=== PATIENT | male | born 1930 | race Caucasian/White ===

== ENCOUNTER 2019-03-18 09:49 | Inpatient (IN) ==
[2019-03-18] MEDS ORDERED: ASPIRIN 325 MG TABLET PO STA (10:38)
[2019-03-18 10:41] LABS: Basophils # 0.1 10*3/uL (0.0-0.2); Basophils % 0.1 % (0.0-0.8); Eosinophils # 0.1 10*3/uL (0.0-0.87); Eosinophils % 0.1 % (0.00-10.9); Immature Granulocytes Absolute 5.16 #; Lymphocytes # 12.9 10*3/uL (1.4-4.0); Lymphocytes % 15.2 % (21.2-54.2); Mean Corpuscular Volume 149.3 FL (87-102); Mean Platelet Volume 10.8 FL (9.6-12.0); Monocytes % 56.1 % (1.7-12.7); NRBC # 0.04 10*3/uL; Neutrophils % 22.5 % (38.7-73.9); Platelet Count 52 T/CUMM (130-400); Red Blood Count 1.34 MC/CUMM (3.8-5.5); Red Cell Distribution Width 19.1 % (9.3-17.3)
[2019-03-18 10:54] LABS: White Blood Count 85.4 T/CUMM (4-12)
[2019-03-18 10:55] LABS: Hemoglobin 6.2 GM/DL (14.0-18.0)
[2019-03-18 10:58] LABS: Albumin 4.1 G/DL (3.4-5.0); Bilirubin,Total 0.9 MG/DL (0.2-1.0); Calcium 8.4 MG/DL (8.5-10.1); Osmolality,Calculated 278.1 MOS/KG (273-304); Total Protein 7.2 G/DL (6.4-8.3)
[2019-03-18 11:02] LABS: Band Neutrophils 2 % (0-10); Hypochromasia 1+; Lymphocytes 3 % (20-55); Platelet Estimate Decreased; Segmented Neutrophils 29 % (50-85); Total Cells Counted 100
[2019-03-18] MEDS ORDERED: SODIUM CHLORIDE 0.9% 1,000 ML IV PRN ×2 (11:28→16:48)
[2019-03-18] MEDS ORDERED: ONDANSETRON 4 MG/2 ML VIAL IV PRN (11:51)
[2019-03-18] MEDS ORDERED: PROMETHAZINE 25 MG TABLET PO PRN (11:51)
[2019-03-18] MEDS ORDERED: LACTULOSE 20 GM/30 ML UDCUP PO PRN (11:51)
[2019-03-18] MEDS ORDERED: ALBUTEROL 2.5 MG/3 ML NEB RESP TX PRN (11:51)
[2019-03-18] MEDS ORDERED: ACETAMINOPHEN 325 MG TABLET PO PRN (11:51)
[2019-03-18] MEDS ORDERED: PIPERACILLIN/TAZOBACTAM 3,375 MG in SODIUM CHLORIDE 0.9% 100 ML IV STA (11:53)
[2019-03-18 12:02] LABS: INR 1.1; PT Patient Result 11.6 SECS
[2019-03-18] MEDS ORDERED: PIPERACILLIN/TAZOBACTAM 3,375 MG VIAL IV ONE (12:15)
[2019-03-18 14:36] LABS: Risk Ratio 2.21; VLDL CHOLESTEROL 29.4 MG/DL
[2019-03-18] MEDS: METOPROLOL TARTRATE 25 MG TABLET PO SCH ×2 (15:11→21:19)
[2019-03-18] MEDS: FAMOTIDINE 20 MG/2 ML VIAL IV SCH (15:12)
[2019-03-18] MEDS: SODIUM CHLORIDE 0.45% 1,000 ML IV SCH (15:13)
[2019-03-18] MEDS: ALUMINUM/MAGNES/SIMETH MAX STR 30 ML UDCUP PO SCH ×2 (18:04→21:19)
[2019-03-18] MEDS: ASPIRIN EC 81 MG TABLET PO SCH (21:18)
[2019-03-18] MEDS: ALLOPURINOL 100 MG TABLET PO SCH (21:18)
[2019-03-18] MEDS: ROSUVASTATIN 20 MG TABLET PO SCH (21:18)
[2019-03-18] MEDS: CHOLECALCIFEROL 1,000 UNIT TABLET PO SCH (21:18)
[2019-03-18 22:08] LABS: ABG Base Excess -5.7 MMOL/L (-2.5-2.5); ABG HCO3 18.8 MMOL/L (20-26); ABG Oxygen Saturation 93.5 % (95-100); ABG PCO2 32.7 MM HG (35-48); ABG PH 7.378 (7.35-7.45); ABG PO2 83.8 MM HG (80-95); ABG TCO2 19.8 MMOL/L (23-27); Allen Test Positive
[2019-03-18] MEDS ORDERED: LORazepam 2 MG/1 ML VIAL IM ONE (22:32)
[2019-03-18] MEDS: THYROID 60 MG TABLET PO SCH (22:41)
[2019-03-19] MEDS ORDERED: ZIPRASIDONE 20 MG/1 ML VIAL IM PRN (02:25)
[2019-03-19 03:29] LABS: ABG Base Excess -5.1 MMOL/L (-2.5-2.5); ABG HCO3 20.1 MMOL/L (20-26); ABG PCO2 39.8 MM HG (35-48); ABG PH 7.322 (7.35-7.45); ABG PO2 58.4 MM HG (80-95); ABG TCO2 19.5 MMOL/L (23-27); Allen Test Positive
[2019-03-19 04:01] LABS: Calcium 7.7 MG/DL (8.5-10.1); Osmolality,Calculated 274.7 MOS/KG (273-304)
[2019-03-19 04:02] LABS: Basophils # 0.1 10*3/uL (0.0-0.2); Basophils % 0.1 % (0.0-0.8); Eosinophils # 0.1 10*3/uL (0.0-0.87); Eosinophils % 0.1 % (0.00-10.9); Hematocrit 23.1 VOL% (42.0-52.0); Hemoglobin 7.2 GM/DL (14.0-18.0); Immature Granulocytes % 6.8 %; Immature Granulocytes Absolute 8.74 #; Lymphocytes # 6.5 10*3/uL (1.4-4.0); Lymphocytes % 5.1 % (21.2-54.2); Mean Corpuscular HGB Conc 31.2 GM/DL (32-36); Mean Corpuscular Volume 131.3 FL (87-102); Monocytes % 66.1 % (1.7-12.7); NRBC # 0.04 10*3/uL; Neutrophils % 21.8 % (38.7-73.9); Red Blood Count 1.76 MC/CUMM (3.8-5.5)
[2019-03-19 04:05] LABS: Platelet Count 64 T/CUMM (130-400)
[2019-03-19 04:07] LABS: White Blood Count 127.9 T/CUMM (4-12)
[2019-03-19] MEDS ORDERED: ALBUTEROL/IPRATROPIUM 3 ML NEB RESP TX ONE (04:18)
[2019-03-19] MEDS ORDERED: SODIUM BICARBONATE 50 MEQ/50 ML VIAL IV ONE (04:19)
[2019-03-19 04:51] LABS: Band Neutrophils 3 % (0-10); Eosinophils 1 % (0-10); Lymphocytes 4 % (20-55); Platelet Estimate Decreased; Segmented Neutrophils 26 % (50-85); Total Cells Counted 100
[2019-03-19 04:52] LABS: Hypochromasia 1+
[2019-03-19] MEDS: PIPERACILLIN/TAZOBACTAM 3,375 MG in SODIUM CHLORIDE 0.9% 100 ML IV SCH ×4 (04:54→23:21)
[2019-03-19] MEDS: ALUMINUM/MAGNES/SIMETH MAX STR 30 ML UDCUP PO SCH ×4 (04:55→21:00)
[2019-03-19] MEDS: METOPROLOL TARTRATE 25 MG TABLET PO SCH ×2 (08:03→21:00)
[2019-03-19] MEDS: FAMOTIDINE 20 MG/2 ML VIAL IV SCH (08:04)
[2019-03-19] MEDS: SODIUM POLYSTYRENE SULFATE 15 GM/60 ML BOTTLE PO ONE ×2 (10:30→15:40)
[2019-03-19] MEDS: ALPRAZolam 0.25 MG TABLET PO PRN ×2 (11:01→20:01)
[2019-03-19] MEDS: SODIUM CHLORIDE 0.45% 1,000 ML IV SCH (13:51)
[2019-03-19 16:38] LABS: Calcium 8.1 MG/DL (8.5-10.1); Osmolality,Calculated 276.4 MOS/KG (273-304)
[2019-03-19] MEDS: CHOLECALCIFEROL 1,000 UNIT TABLET PO SCH (21:00)
[2019-03-19] MEDS: ROSUVASTATIN 20 MG TABLET PO SCH (21:00)
[2019-03-19] MEDS: THYROID 60 MG TABLET PO SCH (21:00)
[2019-03-19] MEDS: ASPIRIN EC 81 MG TABLET PO SCH (21:00)
[2019-03-19] MEDS: ALLOPURINOL 100 MG TABLET PO SCH (21:00)
[2019-03-20] MEDS: SODIUM CHLORIDE 0.45% 1,000 ML IV SCH ×3 (02:50→17:56)
[2019-03-20] MEDS: ALPRAZolam 0.25 MG TABLET PO PRN (02:51)
[2019-03-20] MEDS: ALUMINUM/MAGNES/SIMETH MAX STR 30 ML UDCUP PO SCH ×4 (03:14→21:05)
[2019-03-20 06:44] LABS: Basophils # 0.1 10*3/uL (0.0-0.2); Basophils % 0.1 % (0.0-0.8); Eosinophils # 0.1 10*3/uL (0.0-0.87); Eosinophils % 0.1 % (0.00-10.9); Hematocrit 18.5 VOL% (42.0-52.0); Immature Granulocytes % 5.5 %; Immature Granulocytes Absolute 4.37 #; Lymphocytes # 10.7 10*3/uL (1.4-4.0); Lymphocytes % 13.4 % (21.2-54.2); Mean Corpuscular HGB Conc 32.4 GM/DL (32-36); Mean Corpuscular Volume 127.6 FL (87-102); Mean Platelet Volume 10.4 FL (9.6-12.0); Monocytes % 55.6 % (1.7-12.7); NRBC # 0.04 10*3/uL; Neutrophils % 25.3 % (38.7-73.9); Platelet Count 44 T/CUMM (130-400); Red Blood Count 1.45 MC/CUMM (3.8-5.5)
[2019-03-20 06:53] LABS: White Blood Count 80.1 T/CUMM (4-12)
[2019-03-20 07:00] LABS: Calcium 7.2 MG/DL (8.5-10.1); Osmolality,Calculated 279.1 MOS/KG (273-304); Uric Acid 9.7 MG/DL (3.5-7.2)
[2019-03-20 07:01] LABS: Band Neutrophils 2 % (0-10); Hypochromasia 1+; Lymphocytes 5 % (20-55); Platelet Estimate Decreased; Segmented Neutrophils 33 % (50-85); Total Cells Counted 100
[2019-03-20] MEDS ORDERED: SODIUM CHLORIDE 0.9% 1,000 ML IV PRN (08:09)
[2019-03-20] MEDS: FAMOTIDINE 20 MG/2 ML VIAL IV SCH (09:26)
[2019-03-20] MEDS: HYDROXYUREA 500 MG CAPSULE PO SCH (09:28)
[2019-03-20] MEDS: METOPROLOL TARTRATE 25 MG TABLET PO SCH ×2 (09:28→20:58)
[2019-03-20] MEDS: DUTASTERIDE 0.5 MG CAPSULE PO SCH (09:28)
[2019-03-20] MEDS: HALOPERIDOL 5 MG/ML AMP IM PRN (10:36)
[2019-03-20] MEDS: PIPERACILLIN/TAZOBACTAM 3,375 MG in SODIUM CHLORIDE 0.9% 100 ML IV SCH (17:57)
[2019-03-20] MEDS: THYROID 60 MG TABLET PO SCH (20:55)
[2019-03-20] MEDS: CHOLECALCIFEROL 1,000 UNIT TABLET PO SCH (20:55)
[2019-03-20] MEDS: ASPIRIN EC 81 MG TABLET PO SCH (20:55)
[2019-03-20] MEDS: ALLOPURINOL 100 MG TABLET PO SCH (20:55)
[2019-03-21] MEDS: HALOPERIDOL 5 MG/ML AMP IM PRN (00:45)
[2019-03-21] MEDS: ALUMINUM/MAGNES/SIMETH MAX STR 30 ML UDCUP PO SCH ×4 (06:22→22:37)
[2019-03-21] MEDS: SODIUM CHLORIDE 0.45% 1,000 ML IV SCH ×2 (06:23→21:12)
[2019-03-21] MEDS: PIPERACILLIN/TAZOBACTAM 3,375 MG in SODIUM CHLORIDE 0.9% 100 ML IV SCH ×2 (06:46→18:20)
[2019-03-21 06:50] LABS: Basophils # 0.1 10*3/uL (0.0-0.2); Basophils % 0.1 % (0.0-0.8); Eosinophils # 0.2 10*3/uL (0.0-0.87); Eosinophils % 0.2 % (0.00-10.9); Hematocrit 27.6 VOL% (42.0-52.0); Lymphocytes # 9.2 10*3/uL (1.4-4.0); Mean Corpuscular HGB Conc 32.6 GM/DL (32-36); Mean Corpuscular Volume 110.8 FL (87-102); Mean Platelet Volume 10.5 FL (9.6-12.0); Monocytes % 53.2 % (1.7-12.7); NRBC # 0.03 10*3/uL; Neutrophils % 28.5 % (38.7-73.9); Platelet Count 41 T/CUMM (130-400); Red Blood Count 2.49 MC/CUMM (3.8-5.5); Red Cell Distribution Width 31.5 % (9.3-17.3)
[2019-03-21 06:53] LABS: White Blood Count 76.8 T/CUMM (4-12)
[2019-03-21 07:15] LABS: Calcium 7.4 MG/DL (8.5-10.1); Uric Acid 10.2 MG/DL (3.5-7.2)
[2019-03-21 07:18] LABS: Albumin 3.3 G/DL (3.4-5.0); Bilirubin,Total 0.9 MG/DL (0.2-1.0); Calcium 7.3 MG/DL (8.5-10.1); Total Protein 6.5 G/DL (6.4-8.3)
[2019-03-21] MEDS: HYDROXYUREA 500 MG CAPSULE PO SCH (09:37)
[2019-03-21] MEDS: METOPROLOL TARTRATE 25 MG TABLET PO SCH ×2 (09:37→21:09)
[2019-03-21] MEDS: FAMOTIDINE 20 MG/2 ML VIAL IV SCH (09:41)
[2019-03-21 10:08] LABS: Anisocytosis 2+; Band Neutrophils 2 % (0-10); Eosinophils 2 % (0-10); Lymphocytes 13 % (20-55); Metamyelocytes 1 %; Reactive Lymphocytes Few; Segmented Neutrophils 22 % (50-85); Total Cells Counted 100
[2019-03-21 10:09] LABS: Macrocytosis 1+; Microcytosis 1+; Ovalocytes Few; Platelet Estimate Decreased; Polychromasia Slight; Spherocytes Few
[2019-03-21] MEDS: ASPIRIN EC 81 MG TABLET PO SCH (21:09)
[2019-03-21] MEDS: THYROID 60 MG TABLET PO SCH (21:09)
[2019-03-21] MEDS: CHOLECALCIFEROL 1,000 UNIT TABLET PO SCH (21:09)
[2019-03-21] MEDS: ALLOPURINOL 100 MG TABLET PO SCH (21:10)
[2019-03-22] MEDS: ALUMINUM/MAGNES/SIMETH MAX STR 30 ML UDCUP PO SCH ×4 (05:14→21:00)
[2019-03-22] MEDS: SODIUM CHLORIDE 0.45% 1,000 ML IV SCH (05:14)
[2019-03-22 06:14] LABS: Basophils # 0.1 10*3/uL (0.0-0.2); Basophils % 0.2 % (0.0-0.8); Eosinophils # 0.2 10*3/uL (0.0-0.87); Eosinophils % 0.3 % (0.00-10.9); Hematocrit 27.6 VOL% (42.0-52.0); Immature Granulocytes % 5.5 %; Lymphocytes # 5.7 10*3/uL (1.4-4.0); Lymphocytes % 6.9 % (21.2-54.2); Mean Corpuscular HGB Conc 32.6 GM/DL (32-36); Mean Corpuscular Volume 112.2 FL (87-102); Mean Platelet Volume 10.2 FL (9.6-12.0); Monocytes % 61.7 % (1.7-12.7); NRBC # 0.03 10*3/uL; Neutrophils % 25.4 % (38.7-73.9); Red Blood Count 2.46 MC/CUMM (3.8-5.5); Red Cell Distribution Width 31.7 % (9.3-17.3)
[2019-03-22 06:24] LABS: Platelet Count 39 T/CUMM (130-400)
[2019-03-22 06:43] LABS: Albumin 3.3 G/DL (3.4-5.0); Calcium 7.8 MG/DL (8.5-10.1); Osmolality,Calculated 284.7 MOS/KG (273-304); Total Protein 6.6 G/DL (6.4-8.3)
[2019-03-22] MEDS: PIPERACILLIN/TAZOBACTAM 3,375 MG in SODIUM CHLORIDE 0.9% 100 ML IV SCH ×2 (07:20→17:53)
[2019-03-22 08:16] LABS: Band Neutrophils 2 % (0-10); Lymphocytes 23 % (20-55); Metamyelocytes 1 %; Segmented Neutrophils 29 % (50-85); Total Cells Counted 100
[2019-03-22 08:17] LABS: Anisocytosis 2+; Macrocytosis Slight; Microcytosis Slight; Platelet Estimate Decreased; Polychromasia Slight
[2019-03-22 08:18] LABS: Stomatocytes Slight
[2019-03-22] MEDS: METOPROLOL TARTRATE 25 MG TABLET PO SCH ×2 (10:04→21:00)
[2019-03-22] MEDS: DUTASTERIDE 0.5 MG CAPSULE PO SCH (10:04)
[2019-03-22] MEDS: HYDROXYUREA 500 MG CAPSULE PO SCH (10:04)
[2019-03-22] MEDS: FAMOTIDINE 20 MG/2 ML VIAL IV SCH (10:05)
[2019-03-22] MEDS: ALLOPURINOL 100 MG TABLET PO SCH (21:47)
[2019-03-22] MEDS: CHOLECALCIFEROL 1,000 UNIT TABLET PO SCH (21:48)
[2019-03-22] MEDS: THYROID 60 MG TABLET PO SCH (21:48)
[2019-03-22] MEDS: ASPIRIN EC 81 MG TABLET PO SCH (21:49)
[2019-03-23] MEDS: PIPERACILLIN/TAZOBACTAM 3,375 MG in SODIUM CHLORIDE 0.9% 100 ML IV SCH ×2 (05:49→19:12)
[2019-03-23] MEDS: ALUMINUM/MAGNES/SIMETH MAX STR 30 ML UDCUP PO SCH ×4 (05:50→20:21)
[2019-03-23 06:22] LABS: Basophils # 0.2 10*3/uL (0.0-0.2); Basophils % 0.3 % (0.0-0.8); Eosinophils # 0.3 10*3/uL (0.0-0.87); Eosinophils % 0.4 % (0.00-10.9); Hematocrit 28.9 VOL% (42.0-52.0); Hemoglobin 9.3 GM/DL (14.0-18.0); Immature Granulocytes Absolute 3.93 #; Lymphocytes # 16.3 10*3/uL (1.4-4.0); Lymphocytes % 24.7 % (21.2-54.2); Mean Corpuscular HGB Conc 32.2 GM/DL (32-36); Mean Corpuscular Volume 114.2 FL (87-102); Mean Platelet Volume 10.8 FL (9.6-12.0); Monocytes % 43.5 % (1.7-12.7); NRBC # 0.03 10*3/uL; Neutrophils % 25.1 % (38.7-73.9); Red Blood Count 2.53 MC/CUMM (3.8-5.5)
[2019-03-23 06:28] LABS: Platelet Count 38 T/CUMM (130-400)
[2019-03-23 06:42] LABS: Band Neutrophils 1 % (0-10); Eosinophils 1 % (0-10); Hypochromasia 1+; Lymphocytes 13 % (20-55); Platelet Estimate Decreased; Segmented Neutrophils 34 % (50-85); Total Cells Counted 100
[2019-03-23 06:43] LABS: Microcytosis Slight
[2019-03-23 07:22] LABS: Albumin 3.2 G/DL (3.4-5.0); Bilirubin,Total 0.8 MG/DL (0.2-1.0); Calcium 7.9 MG/DL (8.5-10.1); Osmolality,Calculated 289.3 MOS/KG (273-304); Total Protein 6.7 G/DL (6.4-8.3)
[2019-03-23] MEDS: HYDROXYUREA 500 MG CAPSULE PO SCH (09:04)
[2019-03-23] MEDS: FAMOTIDINE 20 MG/2 ML VIAL IV SCH (09:05)
[2019-03-23] MEDS: METOPROLOL TARTRATE 25 MG TABLET PO SCH ×2 (09:05→20:21)
[2019-03-23] MEDS ORDERED: LEVOFLOXACIN INJ 500 MG in PREMIX 1 EACH IV ONE (16:00)
[2019-03-23] MEDS: CHOLECALCIFEROL 1,000 UNIT TABLET PO SCH (20:11)
[2019-03-23] MEDS: THYROID 60 MG TABLET PO SCH (20:12)
[2019-03-23] MEDS: ASPIRIN EC 81 MG TABLET PO SCH (20:21)
[2019-03-23] MEDS: ALLOPURINOL 100 MG TABLET PO SCH (20:21)
[2019-03-24] MEDS: ALUMINUM/MAGNES/SIMETH MAX STR 30 ML UDCUP PO SCH ×3 (02:34→17:42)
[2019-03-24 05:29] LABS: Basophils # 0.2 10*3/uL (0.0-0.2); Basophils % 0.3 % (0.0-0.8); Eosinophils # 0.1 10*3/uL (0.0-0.87); Eosinophils % 0.2 % (0.00-10.9); Hematocrit 30.4 VOL% (42.0-52.0); Hemoglobin 9.4 GM/DL (14.0-18.0); Immature Granulocytes % 5.5 %; Immature Granulocytes Absolute 3.26 #; Lymphocytes # 9.1 10*3/uL (1.4-4.0); Lymphocytes % 15.3 % (21.2-54.2); Mean Corpuscular HGB Conc 30.9 GM/DL (32-36); Mean Corpuscular Volume 116.5 FL (87-102); Mean Platelet Volume 10.6 FL (9.6-12.0); Monocytes % 53.4 % (1.7-12.7); Neutrophils % 25.3 % (38.7-73.9); Red Blood Count 2.61 MC/CUMM (3.8-5.5); Red Cell Distribution Width 31.1 % (9.3-17.3)
[2019-03-24 05:37] LABS: Platelet Count 38 T/CUMM (130-400); White Blood Count 59.7 T/CUMM (4-12)
[2019-03-24 06:00] LABS: Albumin 3.4 G/DL (3.4-5.0); Bilirubin,Total 0.8 MG/DL (0.2-1.0); Calcium 8.2 MG/DL (8.5-10.1); Osmolality,Calculated 291.1 MOS/KG (273-304); Total Protein 6.7 G/DL (6.4-8.3)
[2019-03-24 06:02] LABS: Total Cells Counted 100
[2019-03-24 06:04] LABS: Band Neutrophils 6 % (0-10); Eosinophils 1 % (0-10); Lymphocytes 5 % (20-55); Myelocytes 2 %; Segmented Neutrophils 30 % (50-85)
[2019-03-24 06:05] LABS: Anisocytosis 1+; Macrocytosis 1+; Ovalocytes 1+
[2019-03-24 06:06] LABS: Platelet Estimate Decreased
[2019-03-24] MEDS: PIPERACILLIN/TAZOBACTAM 3,375 MG in SODIUM CHLORIDE 0.9% 100 ML IV SCH ×2 (06:07→17:43)
[2019-03-24] MEDS: FAMOTIDINE 20 MG/2 ML VIAL IV SCH (08:29)
[2019-03-24] MEDS: HYDROXYUREA 500 MG CAPSULE PO SCH (08:29)
[2019-03-24] MEDS: METOPROLOL TARTRATE 25 MG TABLET PO SCH (08:30)
[2019-03-24] MEDS: DUTASTERIDE 0.5 MG CAPSULE PO SCH (08:30)
[2019-03-24] MEDS ORDERED: LEVOFLOXACIN INJ 250 MG in PREMIX 1 EACH IV SCH (16:00)
[2019-03-24 16:07] VITALS: BP 122/64
== END 2019-03-24 19:15 | disposition swing bed (61) | DRG 840 ==
LOC: N.ED 09:49 → N.EDINP 11:51 → SUATTDRO 11:51 → N.CC 13:01 → N.TELES 18:46 → N.4E 03-20 10:48
PROVIDERS: ADMIT Internal Medicine; ATTEND Family Medicine